=== PATIENT | female | born 1980 | race Caucasian/White ===

== ENCOUNTER 2019-09-17 09:11 | Emergency (ER) | payer SELFPAY ==
[~2019-09-17] VITALS: Ht 154.9 cm; Wt 84.4 kg
[2019-09-17 09:20] VITALS: Ht 154.9 cm; Wt 84.4 kg
[2019-09-17 11:22] LABS: BASOPHIL % 0.2 % (0-2); PLATELET COUNT 244 x10^3mcL (130-400); RED CELL DISTRIBUTION WIDTH 12.8 % (11.5-14.5)
[2019-09-17 11:30] LABS: CALCIUM 8.9 mg/dL (8.5-10.1); CARBON DIOXIDE 30.2 mmol/L (21-32); CHLORIDE SERUM 102 mmol/L (98-107); CREATININE SERUM 0.6 mg/dL (0.6-1.0); GFR1 > 60 mL/min; GLUCOSE SERUM 99 mg/dL (74-106); POTASSIUM SERUM 3.8 mmol/L (3.5-5.1); SODIUM SERUM 138 mmol/L (136-145)
[2019-09-17 11:35] LABS: ALBUMIN 4.1 g/dL (3.4-5.0); ALKALINE PHOSPHATASE 81 U/L (46-116); ALT/SGPT 46 U/L (14-59); AST/SGOT 18 U/L (15-37); BILIRUBIN TOTAL 0.44 mg/dL (0.20-1.00); TOTAL PROTEIN, SERUM 8.3 g/dL (6.4-8.2)
[2019-09-17 11:47] VITALS: BP 130/89
== END 2019-09-17 13:04 | disposition home or self-care (01) ==
LOC: ED 09:11
PROVIDERS: Emergency Medicine
DX: R09.1 Pleurisy (principal); R07.89 Other chest pain; Z90.710 Acquired absence of both cervix and uterus; Z88.1 Allergy status to other antibiotic agents; Z91.013 Allergy to seafood; Z88.8 Allergy status to other drugs, medicaments and biological substances; Z88.5 Allergy status to narcotic agent
CPT/HCPCS: 36415; 85378